=== PATIENT | female | born 1930 | race Caucasian/White ===

== ENCOUNTER 2020-09-03 12:23 | Emergency (ER) | payer MEDICARE ==
[2020-09-03] MEDS ORDERED: Metoclopramide 10 MG/2 ML SDV IV ONE (12:57)
[2020-09-03] MEDS ORDERED: fentaNYL 100 MCG/2 ML SDV IVPUSH ONE ×2 (12:58→13:52)
[2020-09-03] MEDS ORDERED: Sodium Chloride 0.9% 1,000 ML IV SCH (13:00)
--- NOTE | 2020-09-03 13:05 | CRLCT ---
Indication: Head injury on Coumadin Technique : Noncontrast head CT Comparison: No comparison studies are available. Findings: Large left high frontoparietal hematoma. Axial noncontrast images through the brain parenchyma demonstrates no acute intracranial hemorrhage or mass. No midline shift. No abnormal extra-axial air fluid collections are seen. Paranasal sinuses mastoid air cells: Scalp otherwise appears unremarkable. Impression: 1. No acute intracranial hemorrhage or mass. 2. Large left high frontoparietal scalp hematoma. Please note that all CT scans at this facility use dose modulation, iterative reconstruction, and/or weight-based dosing when appropriate to reduce radiation dose to as low as reasonably achievable. Dictated by Bessie Cuevas MD @ Sep 03 2020 12:59PM Signed by Dr. Bessie Cuevas @ Sep 03 2020 1:05PM
--- NOTE | 2020-09-03 13:17 | EDM.PDOC ---
ED HPI GENERAL MEDICAL PROBLEM - General Chief Complaint: Head Injury Stated Complaint: FELL AND HIT HEAD Time Seen by Provider: 09/03/20 12:45 Source of Information: Reports: Patient History Limitations: Reports: No Limitations, Physical Impairment - History of Present Illness INITIAL COMMENTS - FREE TEXT/NARRATIVE: 89 year old female drove herself to ER for evaluation of severe headache after fall results in left posterior head laceration. Andressa is on Coumadin for chronic a fib. Andressa has a left posterior head laceration with hematoma and left elbow hematoma. Andressa was picking-up a friend in [facility] with her in the vehicle. Andressa's friend live [place] in the area when she fell backwards resulting in a fall back wards landing on her head with slight neck pain after fall. 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 Andressa drove herself, friend and to ER to be evaluation due to severity of her headache and head bleed concerns. Head Pain Score (Numeric/FACES): 8 - Related Data Allergies Allergy/AdvReac Type Severity Reaction Status Date / Time clindamycin Allergy Abdominal Verified 09/03/20 13:39 Pain codeine Allergy Anaphylactic Verified 09/03/20 13:08 Shock meperidine Allergy Cannot Verified 09/03/20 13:39 Remember morphine Allergy Anaphylactic Verified 09/03/20 13:39 Shock Penicillins Allergy Rash Verified 09/03/20 13:08 prednisone Allergy Other Verified 09/03/20 13:39 Sulfa (Sulfonamide Allergy Vomiting Verified 09/03/20 13:39 Antibiotics) contrast dye Allergy Tachycardia Uncoded 09/03/20 13:39 Home Meds: Home Meds Denosumab [Prolia] 60 mg INJECT ASDIRECTED 09/03/20 [History] Furosemide [Lasix] 40 mg PO BID 09/03/20 [History] Isosorbide Mononitrate [Imdur] 30 mg PO DAILY 09/03/20 [History] Pantoprazole Sodium [Protonix] 40 mg PO DAILY 09/03/20 [History] Potassium Chloride [K-Tab ER] 20 meq PO DAILY 09/03/20 [History] Rosuvastatin [Crestor] 20 mg PO BEDTIME 09/03/20 [History] Rosuvastatin [Crestor] 20 mg PO BEDTIME 09/03/20 [History] Warfarin [Coumadin] 3 mg PO DAILY 09/03/20 [History] ED ROS GENERAL - Review of Systems Review Of Systems: Comprehensive ROS is negative, except as noted in HPI. (limited time to allow for full ROS but patient denies any complaints not address in HPI) ED EXAM, HEAD INJURY - Physical Exam Exam: See Below Exam Limited By: No Limitations General Appearance: Alert, Severe Distress (severe headache and nausea in light of head injury on Coumadin ) Head: Scalp Swelling (left posterior vertex), Scalp Abrasions (left posterior vertex), Scalp Hematoma (left posterior vertex), Scalp Tenderness (left posterior vertex). No: Scalp Lacerations (noted after cleansing area with wet wash clothes) Nexus Criteria: Painful Distraction Injuries (unable to clear clinically due to scalp laceration and headache. C collar applied. CT Cervical spine ordered for evaluation of neck pain in setting of head injury.) Eyes: Bilateral Eye: EOMI, Normal Inspection Ears: Normal External Exam, Hearing Grossly Normal Nose: Normal Inspection, No Blood Throat/Mouth: Normal Inspection, Normal Voice, No Airway Compromise Neck: Limited Range of Motion, Muscle Spasm, Tenderness (unable to clear cervical spine due to distracting headache and scalp injury) Respiratory: No Respiratory Distress, Normal Breath Sounds, Chest Non-Tender, Other (Left Chest pacemaker noted) Cardiovascular: Normal Peripheral Pulses, Irregularly Irregular GI/Abdominal Exam: Normal Bowel Sounds, Soft, Non-Tender (Female) Exam: Deferred Rectal (Female) Exam: Deferred Back Exam: Normal Inspection, Other (kyphosis noted) Extremities: Normal Inspection, Arm Pain (left elbow bruising without laceration or deformity. minimal pain with movement), Leg Pain (left leg pain without injury noted ) Neurologic: Alert, Normal Mood/Affect, Oriented x 3 Skin: Normal Color, Warm/Dry ED LACERATION/WOUND & BERNADETTE PROC - Additional/Other Procedure(s) Other (Free Text) Procedure(s): Left posterior superior scalp dried matted blood in hair was moistened and cleaned reveling no repairable laceration but abrasion, hematoma and bruising noted. EKG INTERPRETATION EKG Date: 09/03/20 Time: 13:08 Rhythm: Other (A fib a flutter with V paced complexes.) Rate (Beats/Min): 60 Heber: Normal P-Wave: Variable QRS: Normal ST-T: Normal QT: Normal Comparison: NA - No Prior EKG Course - Vital Signs Last Recorded V/S: Last Vital Signs Temp 35.7 C L 09/03/20 12:25 Pulse 63 09/03/20 12:25 Resp 20 09/03/20 12:25 BP 178/99 H 09/03/20 12:25 Pulse Ox 100 09/03/20 12:25 - Orders/Labs/Meds Orders: Active Orders 24 hr Category Date Time Status EKG 12 Lead [EK] Stat Ther 09/03/20 12:54 Ordered Labs: Laboratory Tests 09/03/20 09/03/20 09/03/20 Range/Units 13:04 13:04 13:04 WBC 7.2 (4.5-11.0) K/uL RBC 6.13 H (3.30-5.50) M/uL Hgb 15.1 H (12.0-15.0) g/dL Hct 49.0 H (36.0-48.0) % MCV 80 (80-98) fL MCH 25 L (27-31) pg MCHC 31 L (32-36) % Plt Count 203 (150-400) K/uL Neut % (Auto) 69 H (36-66) % Lymph % (Auto) 21 L (24-44) % Scott % (Auto) 8 H (2-6) % Eos % (Auto) 2 (2-4) % Baso % (Auto) 0 (0-1) % PT 34.4 H (9.5-12.0) sec INR 3.23 H (0.80-1.20) Sodium 145 (140-148) mmol/L Potassium 4.4 (3.6-5.2) mmol/L Chloride 108 (100-108) mmol/L Carbon Dioxide 27 (21-32) mmol/L Anion Gap 9.8 (5.0-14.0) mmol/L BUN 22 H (7-18) mg/dL Creatinine 1.3 H (0.6-1.0) mg/dL Est Cr Clr Drug Dosing TNP Estimated GFR (MDRD) 39 L (>60) Glucose 79 (74-106) mg/dL Calcium 9.7 (8.5-10.1) mg/dL Total Bilirubin 1.1 H (0.2-1.0) mg/dL Direct Bilirubin 0.30 H (0.0-0.2) mg/dL Indirect Bilirubin 0.80 AST 28 (15-37) U/L ALT 27 (12-78) U/L Alkaline Phosphatase 67 (46-116) U/L Total Protein 7.8 (6.4-8.2) g/dL Albumin 3.8 (3.4-5.0) g/dL Globulin 4.0 H (2.3-3.5) g/dL Albumin/Globulin Ratio 1.0 L (1.2-2.2) Meds: Medications Discontinued Medications Generic Name Dose Route Start Last Admin Trade Name Freq PRN Reason Stop Dose Admin Acetaminophen 650 mg 09/03/20 15:38 09/03/20 15:58 Tylenol PO 09/03/20 15:39 650 mg NOW ONE Administration Fentanyl 50 mcg 09/03/20 12:58 09/03/20 13:10 Sublimaze IVPUSH 09/03/20 12:59 50 mcg ONETIME ONE Administration Fentanyl 50 mcg 09/03/20 13:52 09/03/20 14:23 Sublimaze IVPUSH 09/03/20 13:53 50 mcg ONETIME ONE Administration Sodium Chloride 1,000 mls @ 500 mls/hr 09/03/20 13:00 09/03/20 13:18 Normal Saline IV 500 mls/hr ASDIRECTED [facility] Administration Lidocaine/Epinephrine 10 ml 09/03/20 13:52 09/03/20 14:23 Xylocaine 1% With Epinephrine 1:100,000 SUBCUT 09/03/20 13:53 10 ml ONETIME ONE Administration Metoclopramide HCl 5 mg 09/03/20 12:57 09/03/20 13:09 Reglan IV 09/03/20 12:58 5 mg ONETIME ONE Administration - Re-Assessments/Exams Free Text/Narrative Re-Assessment/Exam: Immediately after patient was wheeled back from [facility] sent to CT for CT Head. Wet read noted acute traumatic subdural per radiology assistant and ER physician. Patient is from [facility] and understands normally would transported to [facility] but [facility] would be able to offer appropriate care in the correct direction of patient's home and primary care givers/family. SBP 187/110. Spoke to ER provider at [facility] whom accepted transfer to [facility] ETC to discuss with Neurosurgeon. 09/03/20 12:58 Radiology report impression: 1. No acute intracranial hemorrhage or mass. 2. Large left high frontoparietal scalp hematoma. Radiologist report was negative for head bleed and scalp hematoma on examination in posterior parietal area. Due to symptoms and concerns, sent images to [facility] and requesting neurosurgery review before decision for air transport, due to time to destination and potential decompensation. 09/03/20 13:10 [facility] returned phone call and Dr Edmonds is unable to see images due to nota available in [facility] system to review. Got transfer to [facility] Radiology department to speak to tech to assist with ensuring images are available in [facility] for Neurosurgeon. 09/03/20 13:18 Called [facility] radiology department to speak to imaging services regarding available in [employer] and getting pushed to [facility] for Neurosurgery review. Images are now available in [facility] per remanufacturing technician. 09/03/20 13:33 Called Transfer line again to update regarding images are now available for review. SBP recheck 146/60 Pulse: 60 with improvement of headache. 09/03/20 13:[address] Edmonds, Neurosurgeon, Old vs venous sinus not acute blood at this time. Discussed findings with patient and at this time with continued ER evaluation here for further neck injury, repair scalp laceration and discuss safe evaluation and disposition planning. 09/03/20 13:41 Reassessment: Headache is much improved. Scalp wound cleansed scalp contusion, hematoma and abrasions noted. No repairable laceration found. Reviewed CT Cervical Spine images reviewed by myself noting no obvious acute fractures. Pending radiology reading at this time. Patient and offered something to eat. 09/03/20 14:50 CT Cervical spine radiology report available: Impression: 1. No acute fracture or traumatic malalignment of the cervical spine. 2. Spondylotic changes of the cervical spine. 3. enlarged multinodular thyroid gland. Recommend further evaluation with nonemergent thyroid ultrasound. 09/03/20 14:55 Spoke to family/grandson in [place] regarding ER presentation and is found to be safe to discharge at this time, if able to be monitored closely for acute changes related to fall, head injury, risk of head bleed and concussion. 09/03/20 15:46 Extended family/friends whom live in area pick patient up to monitor over night and have safe ride to return to [facility] area tomorrow and close follow-up with PCP recommended. Departure - Departure Time of Disposition: 16:30 Disposition: Home, Self-Care 01 Clinical Impression: Fall (on) (from) other stairs and steps, initial encounter, Head injury due to trauma, Left parietal scalp hematoma, Chronic anticoagulation, Multiple thyroid nodules, A-fib, Pacemaker - Discharge Information Instructions: Head Injury, Adult, Concussion, Adult, Fall Prevention in the Home, Adult Referrals: PCP,None [Primary Care Provider] - Forms: ED Department Discharge Additional Instructions: 1. Hold Coumadin today and tomorrow. Resume dosing on Saturday as directed. 2. No driving until evaluated by PCP to ensure not acute concerns. 3. Subtle/Subacute head bleed can occur upto 1 month after fall injury, despite negative CT Head scan after initial negative evaluation. 4. Tylenol 325-650mg every 6 hours for headache as needed. Max 3000mg per 24hrs. 5. Follow head injury/concussion and scalp hematoma information given. 6. Return to local ER if worsening headache, confusion, repetitive vomiting or new concerns regarding head injury, concussion or head bleed. 7. Call PCP for repeat evaluation this week before resuming normal activity and driving. Sepsis Event Note (ED) - Focused Exam Vital Signs: Vital Signs Temp Pulse Resp BP Pulse Ox 09/03/20 12:25 35.7 C L 63 20 178/99 H 100 - Problem List & Annotations (1) A-fib SNOMED Code(s): 21697288 Code(s): I48.91 - UNSPECIFIED ATRIAL FIBRILLATION Status: Acute (2) Chronic anticoagulation SNOMED Code(s): 409577755 Code(s): Z79.01 - SNF (CURRENT) USE OF ANTICOAGULANTS Status: Acute (3) Fall (on) (from) other stairs and steps, initial encounter SNOMED Code(s): 902978408 Code(s): W10.8XXA - FALL (ON) (FROM) OTHER STAIRS AND STEPS, INITIAL ENCOUNTER Status: Acute (4) Head injury due to trauma SNOMED Code(s): 81090230 Code(s): S09.90XA - UNSPECIFIED INJURY OF HEAD, INITIAL ENCOUNTER Status: Acute (5) Left parietal scalp hematoma SNOMED Code(s): 077273316 Code(s): S00.03XA - CONTUSION OF SCALP, INITIAL ENCOUNTER Status: Acute (6) Multiple thyroid nodules SNOMED Code(s): 865508577 Code(s): E04.2 - NONTOXIC MULTINODULAR GOITER Status: Acute (7) Pacemaker SNOMED Code(s): 413103418 Code(s): Z95.0 - PRESENCE OF CARDIAC PACEMAKER Status: Acute - My Orders Last 24 Hours: My Active Orders 09/03/20 12:54 EKG 12 Lead [EK] Stat - Assessment/Plan Last 24 Hours: My Active Orders 09/03/20 12:54 EKG 12 Lead [EK] Stat
[2020-09-03] MEDS ORDERED: Lidocaine 1% with EPINEPHrine 1:100,000 50 ML MDV SUBCUT ONE (13:52)
--- NOTE | 2020-09-03 14:52 | CRLCT ---
Indication: Neck pain after fall. Technique: CT of the cervical spine without IV contrast. Coronal and sagittal reconstructions. Comparison: None. Findings: No acute fracture or traumatic malalignment of the cervical spine. Straightening of the normal cervical lordosis. Minimal anterolisthesis of C4 on C5 and T1 on T2. Mild spondylotic changes of the cervical spine including anterior hypertrophic spurring, facet arthropathy, and disc space narrowing greatest at C5-C6. Mild multilevel neural foraminal narrowing. No significant spinal canal stenosis. Paraspinal soft tissues are unremarkable. Visualized intracranial contents are unremarkable. The mastoid air cells are clear. Bilateral carotid bulb calcifications. Enlarged thyroid gland containing multiple nodules, the largest of which measures 2.6 cm in the right thyroid lobe (series 2, image 71). Left chest pacemaker. Motion artifact at the level of the aortic arch. The lung apices are clear. Impression: 1. No acute fracture or traumatic malalignment of the cervical spine. 2. Spondylotic changes of the cervical spine. 3. Enlarged multinodular thyroid gland. Recommend further evaluation with nonemergent thyroid ultrasound. Please note that all CT scans at this facility use dose modulation, iterative reconstruction, and/or weight-based dosing when appropriate to reduce radiation dose to as low as reasonably achievable. Dictated by Clarice Boyd MD @ Sep 03 2020 2:40PM Signed by Dr. Clarice Boyd @ Sep 03 2020 2:50PM
[2020-09-03] MEDS ORDERED: Acetaminophen 325 MG Tab PO ONE (15:38)
== END 2020-09-03 17:19 | disposition home or self-care (01) ==
LOC: JP.ED 12:23
DX: S00.03XA Contusion of scalp, initial encounter (principal); S50.02XA Contusion of left elbow, initial encounter; E04.1 Nontoxic single thyroid nodule; I48.91 Unspecified atrial fibrillation; D68.318 Other hemorrhagic disorder due to intrinsic circulating anticoagulants, antibodies, or inhibitors; I48.92 Unspecified atrial flutter; M79.605 Pain in left leg; M40.209 Unspecified kyphosis, site unspecified; M54.2 Cervicalgia; Z95.0 Presence of cardiac pacemaker; Z88.1 Allergy status to other antibiotic agents; Z88.5 Allergy status to narcotic agent; Z88.0 Allergy status to penicillin; Z88.8 Allergy status to other drugs, medicaments and biological substances; W10.8XXA Fall (on) (from) other stairs and steps, initial encounter; Y92.828 Other wilderness area as the place of occurrence of the external cause
CPT/HCPCS: 36415; 70450; 72125; 80048; 80076; 85025; 85610; 93005; 96361; 96372; 96374; 96375; 96376; 99284-25; A9270-GY; J2765; J3010; J7030